=== PATIENT | male | born 1995 | race Caucasian/White ===

== ENCOUNTER 2022-05-13 13:04 | Outpatient (CLI) | payer MEDICAID, SELFPAY ==
--- NOTE | 2022-05-13 13:18 | US_ITS ---
WS: [id number] RIGHT UPPER QUADRANT ULTRASOUND HISTORY: ELEVATED BILIRUBIN COMPARISON: None available. Liver: 15.0 cm in length. Normal size liver. No bile duct dilatation or mass. Portal Vein: Normal hepatopetal flow with monophasic waveform. Gallbladder: Normally distended gallbladder with no stones or wall thickening. CBD: 0.3 cm Pancreas: Normal size and echogenicity. Right kidney: 10.4 cm in length. Normal size and echogenicity. No hydronephrosis or mass. Aorta and IVC: Unremarkable abdominal aorta and IVC. No ascites. US/US gall bladder [id number] IMPRESSION: Normal RIGHT upper quadrant ultrasound.
== END 2022-05-13 13:05 | disposition home or self-care (01) ==
LOC: RAD 13:13
PROVIDERS: PCP Nurse Practitioner; Visit Provider Nurse Practitioner
DX: R17 Unspecified jaundice (principal)
CPT/HCPCS: 76705

== ENCOUNTER → 2022-09-13 12:19 | Outpatient (BNVA) | payer MEDICAID, SELFPAY | PROVIDERS: PCP Nurse Practitioner; Visit Provider Internal Medicine Pulmonary Disease | DX: R06.09 Other forms of dyspnea (principal) | CPT/HCPCS: 36415; 71046; 82785; 85025; 85651; 86003; 86140 ==

== ENCOUNTER 2022-09-29 10:26 | Outpatient (CLI) | payer MEDICAID, SELFPAY ==
[2022-09-29 10:45] VITALS: PULSE 92; RESP 18; O2SAT 99
[2022-09-29] MEDS: albuterol 2.5 mg/3 mL Neb INHALATION (10:45)
[2022-09-29 10:50] VITALS: PULSE 100
== END 2022-09-29 10:27 | disposition home or self-care (01) ==
LOC: RT 10:28
PROVIDERS: PCP Nurse Practitioner; Visit Provider Internal Medicine Pulmonary Disease
DX: R06.02 Shortness of breath (principal); R94.2 Abnormal results of pulmonary function studies
CPT/HCPCS: 36415; 71046; 82785; 85025; 85651; 86003; 86140; 94060; 94726; 94729; J7613

== ENCOUNTER → 2022-11-22 15:37 | Outpatient (BNVA) | payer MEDICAID, SELFPAY | PROVIDERS: PCP Nurse Practitioner; Visit Provider Internal Medicine Pulmonary Disease | DX: R06.09 Other forms of dyspnea (principal) | CPT/HCPCS: 36415; 80048 ==

== ENCOUNTER 2022-12-12 15:59 | Outpatient (CLI) | payer MEDICAID, SELFPAY ==
--- NOTE | 2022-12-12 16:00 | CT_ITS ---
WS: [id number] CT chest w con* [id number] HISTORY: CT chest with contrast - for abnormal chest x ray TECHNIQUE: Axial imaging performed through the thorax. Coronal and sagittal reformats are submitted. All CT scans at [facility] use at least one of these dose optimization techniques: automated exposure control; mA and/or kV adjustment per patient size (includes targeted exams where dose is mat ched to clinical indication); or iterative reconstruction. CONTRAST: Omnipaque 350; 100 mL IV. DLP: 186.05 mGy.cm COMPARISON: Chest radiograph 09/13/2022 Lungs and central airway: The lungs are well-aerated. Benign perifissural nodules along the right aislinn or fissure. There is an additional 3 mm nodule superior left lower lobe, image 31 of series 5. No mas s. Previously described soft tissue at the right heart border corresponds to prominent epicardial fat . Pleura: Normal. No pleural effusion. Heart and pericardium: Normal size heart. Mediastinum and orestes: Small amount of residual thymic tissue. No adenopathy. Vessels: Normal size aortic and pulmonary artery. No coronary artery calcifications. Chest wall and lower neck: No soft tissue masses. Upper abdomen: 8 mm area of decreased attenuation with nodular peripheral enhancement in the caudate lobe is most likely a very small hemangioma. Osseous structures: No destructive process. IMPRESSION: 1. No suspicious mass or pulmonary nodules. Benign right perifissural nodules and a left lower lobe m icronodule. 2. Soft tissue density seen on the recent chest radiograph corresponds to prominent epicardial fat pa d. 3. Caudate lobe 8 mm peripherally enhancing mass is most likely a hemangioma.
[2022-12-12] MEDS: iohexol 350 mg/mL 500 mL Btl (per mL) IV (16:22)
== END 2022-12-12 16:00 | disposition home or self-care (01) ==
LOC: RAD 15:59
PROVIDERS: PCP Nurse Practitioner; Visit Provider Internal Medicine Pulmonary Disease
DX: R93.89 Abnormal findings on diagnostic imaging of other specified body structures (principal); R06.09 Other forms of dyspnea; R91.8 Other nonspecific abnormal finding of lung field
CPT/HCPCS: 71260; Q9967

== ENCOUNTER 2024-07-23 09:51 | Day surgery (SDC) | payer MEDICAID, SELFPAY ==
--- NOTE | 2024-07-23 10:16 | ANES.PREANE2 ---
Pre-Anesthetic Assessment Height/Weight: Height 1.68 m Weight 61.235 kg Preop Diagnosis: hematochezia Operation Date: 07/23/24 11:00 Proposed Procedures p Colonoscopy 13084 G0105 K92.1(Not Applicable) - Adiel Chavez MD Familial anesthetic complications: none Was Beta Dave taken within 24 hours: N/A Was Clonidine taken within 24 hours: N/A Last intake: meal 07/21/241999 drink 07/23/24 0000 Social THC 07/21/24 Exam alert, oriented x 3, clear to auscultation bilaterally and regular rate & rhythm Airway Submandibular: within normal limits Cervical ROM: within normal limits Mallampati: Class II Comments: Comments: front teeth implants Pulmonary None reported CV/HEM None reported None reported Hepatic None reported GI hematochezia Metabolic None reported Musc/skel None reported Neuropsych None reported Anesthetic Plan ASA status: 2 Anesthesia: MAC Medications/Allergies Home Medications ?Medication ?Instructions ?Recorded ?Confirmed ?Last Taken ?Type No Known Home Medications 07/15/24 07/18/24 Unknown History Allergies Allergy/AdvReac Type Severity Reaction Status Date / Time No Known Allergies Allergy Verified 07/15/24 11:17 [facility] Anesthesia Family History Father Asthma Grandfather Bladder cancer Grandmother Panlobular emphysema Social History Smoking and tobacco/nicotine status: never used tobacco/nicotine Data Anesthesia Cardiac Studies: No Data to Display
[2024-07-23 10:23] VITALS: BP 140/94; PULSE 106; RESP 16; TEMP 36.2; O2SAT 99
[2024-07-23] MEDS: sodium chloride 0.9% 500 ML 15 ML IV (10:26)
--- NOTE | 2024-07-23 11:01 | W.PM.OPSUD ---
Surgery/Procedure H&P Update DATE OF PROCEDURE: July 23, 2024 DATE H&P PERFORMED: 07/15/24 H&P UPDATE INFORMATION: I have reviewed H&P completed within last 30 days, I have examined patient prior to procedure and No changes to prior documentation PREOP DIAGNOSIS: hematochezia PLANNED PROCEDURE: Operation Date: 07/23/24 11:00 Proposed Procedures p Colonoscopy 64662 G0105 K92.1(Not Applicable) - Adiel Chavez MD
[2024-07-23 11:20] VITALS: BP 102/68; PULSE 77; RESP 17; TEMP 36.4; O2SAT 96
--- NOTE | 2024-07-23 11:55 | ANE.PACU2 ---
Inpatient post-anesthesia follow up: Airway intact: Yes Vital signs: Temperature 97.6 F Pulse Rate 77 Respiratory Rate 17 Blood Pressure 102/68 Pulse Oximetry 96 Oxygen Delivery Me thod Room Air Oxygen Flow Rate Fraction of Inspir ed Oxygen Hydration adequate: Yes Nausea and vomiting: No Pain level: 1 Mental status: Baseline
== END 2024-07-23 11:55 | disposition home or self-care (01) ==
PROVIDERS: PCP Family Medicine; Visit Provider Student in an Organized Health Care Education/Training Program
PROC: 0DJD8ZZ Inspection of Lower Intestinal Tract, Via Natural or Artificial Opening Endoscopic (ICD-10-PCS; CPT 45378; principal; 2024-07-23 11:00)
DX: K92.1 Melena (principal)
CPT/HCPCS: 45378; J2704; J7040

== ENCOUNTER 2024-09-12 13:54 | Outpatient (CLI) | payer MEDICAID, SELFPAY ==
--- NOTE | 2024-09-12 13:57 | MRR_ITS ---
PROCEDURE INFORMATION: Exam: MR Abdomen Without Contrast Exam date and time: 09/12/2024 2:31 PM Age: 29 years old Clinical indication: Abdominal pain; Generalized; Caudate lobe 8 mm peripherally enhancing mass is most likely a hemangioma on prior CT in 2022. Blood in stools; Additional info: Unspecified abd pain/liver dz/abnormal findings on imaging TECHNIQUE: Imaging protocol: Magnetic resonance imaging of the abdomen without contrast. COMPARISON: US gall bladder [id number] 05/13/2022 1:27 PM FINDINGS: Liver: There is an 8 mm nodule lying within the lateral aspect of the anterior segment of the right hepatic lobe. The nodule demonstrates enhancement of its periphery. The lesion demonstrates bright T2 signal. No other liver lesion noted. Gallbladder and biliary ducts: Unremarkable. No stones. No ductal dilation. Pancreas: Unremarkable. No ductal dilation. Spleen: Unremarkable. No splenomegaly. Adrenal glands: Unremarkable. No mass. Kidneys: Unremarkable. No solid mass. No hydronephrosis. Stomach and bowel: Visualized stomach and intestines are unremarkable. Intraperitoneal space: No free fluid. Vasculature: No abdominal aortic aneurysm. Lymph nodes: No enlarged nodes. Bones/joints: Unremarkable. No suspicious lesions. Soft tissues: Unremarkable. MR/MR abdomen wo/w con* [id number] IMPRESSION: 8 mm hemangioma
[2024-09-12] MEDS: gadobenate dimeglumine 20 mL vial 15 ML IV (14:51)
== END 2024-09-12 13:55 | disposition home or self-care (01) ==
PROVIDERS: PCP Nurse Practitioner Family; Visit Provider Nurse Practitioner Family
DX: R10.9 Unspecified abdominal pain (principal); D18.09 Hemangioma of other sites; K76.89 Other specified diseases of liver
CPT/HCPCS: 74183